=== PATIENT | male | born 2000 | race Hispanic/Latino ===

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

== ENCOUNTER 2023-01-29 11:33 | Emergency (ER) | payer MEDICAID, OTHER ==
[~2023-01-29] VITALS: Ht 182.9 cm; Wt 136.1 kg
[2023-01-29] MEDS ORDERED: IBUPROFEN 800 MG TAB PO ONE (15:30)
[2023-01-29] MEDS ORDERED: IBUP-2077 PO (16:06)
[2023-01-29] MEDS ORDERED: CYCL10TA16 PO (16:06)
[2023-01-29 16:22] VITALS: BP 139/79; PULSE 66; RESP 16; O2SAT 99
== END 2023-01-29 16:27 | disposition home or self-care (01) ==
LOC: EDH 11:33
DX: S39.012A Strain of muscle, fascia and tendon of lower back, initial encounter (principal); X58.XXXA Exposure to other specified factors, initial encounter; Y93.89 Activity, other specified; Y92.89 Other specified places as the place of occurrence of the external cause; Y99.8 Other external cause status
CPT/HCPCS: 72100